=== PATIENT | female | born 1955 | race Caucasian/White ===

== ENCOUNTER 2023-03-08 06:22 | Emergency (ER) | payer BC ==
[2023-03-08] MEDS ORDERED: hydrALAZINE 20 MG/ML VIAL ONE (07:22)
[2023-03-08 07:23] LABS: #Basophils 0.1 thou/uL (0.0-0.2); #Eosinphils 0.3 thou/uL (0.0-0.7); #Monocytes 0.7 thou/uL (0.11-0.59); #Neutrophils 4.2 thou/uL (1.40-6.50); %Basophils 0.6 % (0.0-1.0); %Eosinophils 3.4 % (0.0-10.0); %Lymphocytes 47.1 % (21.0-51.0); %Monocytes 7.2 % (0.0-10.0); %Neutrophils 41.2 % (42.0-75.0); Hematocrit 46.6 % (36.0-47.0); Hemoglobin 16.2 g/dL (12.0-16.0); Mean Corpuscular HGB CONC 34.8 g/dL (32.0-36.0); Mean Corpuscular Hemoglobin 32.4 pg (27.0-31.0); Mean Corpuscular Volume 93.2 fl (78.0-98.0); Mean Platelet Volume 11.5 fL (7.4-10.4); Platelet Count 243 10x3/uL (130-400); RBC Distribution Width 11.9 % (11.5-14.5); White Blood Cell (WBC) Count 10.1 10x3/uL (4.8-10.8)
[2023-03-08 07:50] LABS: ALT (SGPT) 30 U/L (8-55); AST (SGOT) 25 U/L (5-34); Albumin 4.2 g/dL (3.4-4.8); Alkaline Phosphatase 65 U/L (40-110); Anion Gap 11 mmol/L (10-20); BUN (Urea Nitrogen) 14 mg/dL (9.8-20.1); Bilirubin, Total 0.6 mg/dL (0.2-1.2); Calc. Creatinine Clearance 0 mL/min (70-130); Calcium 9.5 mg/dL (7.8-10.44); Carbon Dioxide 28 mmol/L (23-31); Chloride 100 mmol/L (98-107); Estimated GFR 72; Globulin 3.5 g/dL (2.4-3.5); Glucose 229 mg/dL (80-115); Potassium 3.9 mmol/L (3.5-5.1); Protein, Total 7.7 g/dL (5.8-8.1); Sodium 135 mmol/L (136-145)
[2023-03-08 07:52] LABS: Troponin I 0.016 ng/mL (< 0.028)
== END 2023-03-08 08:59 | disposition short-term general hospital (02) ==
LOC: ERS 06:22
DX: I10 Essential (primary) hypertension (principal); E11.9 Type 2 diabetes mellitus without complications; Z79.82 Long term (current) use of aspirin
CPT/HCPCS: 70450; 80053; 84484; 85025; 93005; 96374; J0360

== ENCOUNTER 2023-03-12 17:56 | Inpatient (IN) | payer BC ==
[2023-03-12 18:14] LABS: #Basophils 0.1 thou/uL (0.0-0.2); #Eosinphils 0.2 thou/uL (0.0-0.7); #Monocytes 0.8 thou/uL (0.11-0.59); #Neutrophils 5.6 thou/uL (1.40-6.50); %Basophils 0.8 % (0.0-1.0); %Eosinophils 2.2 % (0.0-10.0); %Lymphocytes 36.8 % (21.0-51.0); %Monocytes 7.8 % (0.0-10.0); %Neutrophils 52.3 % (42.0-75.0); Hematocrit 48.4 % (36.0-47.0); Hemoglobin 16.8 g/dL (12.0-16.0); Mean Corpuscular HGB CONC 34.7 g/dL (32.0-36.0); Mean Corpuscular Hemoglobin 32.7 pg (27.0-31.0); Mean Corpuscular Volume 94.3 fl (78.0-98.0); Mean Platelet Volume 10.7 fL (7.4-10.4); Platelet Count 271 10x3/uL (130-400); RBC Distribution Width 11.9 % (11.5-14.5); Red Blood Cell (RBC) Count 5.13 mill/uL (4.20-5.40); White Blood Cell (WBC) Count 10.6 10x3/uL (4.8-10.8)
[2023-03-12 18:26] LABS: INR-International Normal Ratio 1.1; Prothrombin Time 14.4 sec (12.0-14.7)
[2023-03-12 18:27] LABS: PTT 24.1 sec (22.9-36.1)
[2023-03-12 18:40] LABS: Troponin I 0.011 ng/mL (< 0.028)
[2023-03-12 18:46] LABS: ALT (SGPT) 30 U/L (8-55); AST (SGOT) 31 U/L (5-34); Albumin 4.4 g/dL (3.4-4.8); Alkaline Phosphatase 64 U/L (40-110); Anion Gap 15 mmol/L (10-20); BUN (Urea Nitrogen) 14 mg/dL (9.8-20.1); Bilirubin, Total 0.9 mg/dL (0.2-1.2); Calc. Creatinine Clearance 0 mL/min (70-130); Calcium 9.9 mg/dL (7.8-10.44); Carbon Dioxide 25 mmol/L (23-31); Chloride 102 mmol/L (98-107); Estimated GFR 58; Globulin 3.6 g/dL (2.4-3.5); Glucose 194 mg/dL (80-115); Sodium 138 mmol/L (136-145)
[2023-03-12] MEDS ORDERED: hydrALAZINE 20 MG/ML VIAL SLOW IVP PRN (19:15)
[2023-03-12] MEDS ORDERED: Acetaminophen 325 MG TAB PO PRN (19:18)
[2023-03-12] MEDS ORDERED: Calcium Carbonate 500 MG ChewTAB PO PRN (19:18)
[2023-03-12] MEDS ORDERED: Senokot S 8.6-50 MG TAB PO PRN (19:18)
[2023-03-12] MEDS ORDERED: Ondansetron ODT 4 MG TAB PO PRN (19:18)
[2023-03-12] MEDS ORDERED: Aspirin Chewable 81 MG TAB ONE (19:57)
[2023-03-12 21:36] VITALS: BMI 37.8
[2023-03-12] MEDS ORDERED: Atorvastatin Calcium 40 MG TAB ONE (21:39)
[2023-03-12] MEDS ORDERED: Famotidine 20 MG TAB ONE (21:39)
[2023-03-12 21:48] LABS: Hemoglobin A1c 11.1 % (4.0-6.0)
[2023-03-12] MEDS: Famotidine 20 MG TAB PO SCH (21:49)
[2023-03-12] MEDS: Atorvastatin Calcium 40 MG TAB PO SCH (21:49)
[2023-03-13 05:07] LABS: Anion Gap 14 mmol/L (10-20); BUN (Urea Nitrogen) 18 mg/dL (9.8-20.1); Calc. Creatinine Clearance 89 mL/min (70-130); Calcium 9.3 mg/dL (7.8-10.44); Carbon Dioxide 22 mmol/L (23-31); Cardiac Risk 6.4 (Less than 4.5); Chloride 105 mmol/L (98-107); Cholesterol 205 mg/dl (< 200 Desired); Estimated GFR 64; Glucose 229 mg/dL (80-115); HDL Cholesterol 32 mg/dL (>60 Neg Risk); LDL Cholesterol, Calculated 133 mg/dL; Potassium 3.9 mmol/L (3.5-5.1); Sodium 137 mmol/L (136-145); Triglycerides 198 mg/dL (Less than 150)
[2023-03-13 05:40] LABS: #Basophils 0.1 thou/uL (0.0-0.2); #Eosinphils 0.3 thou/uL (0.0-0.7); #Monocytes 0.8 thou/uL (0.11-0.59); #Neutrophils 4.1 thou/uL (1.40-6.50); %Basophils 0.7 % (0.0-1.0); %Eosinophils 2.9 % (0.0-10.0); %Lymphocytes 46.5 % (21.0-51.0); %Monocytes 8.5 % (0.0-10.0); %Neutrophils 41.2 % (42.0-75.0); Hemoglobin 15.1 g/dL (12.0-16.0); Mean Corpuscular HGB CONC 34.3 g/dL (32.0-36.0); Mean Corpuscular Hemoglobin 32.6 pg (27.0-31.0); Mean Platelet Volume 11.7 fL (7.4-10.4); Platelet Count 249 10x3/uL (130-400); RBC Distribution Width 12.3 % (11.5-14.5); Red Blood Cell (RBC) Count 4.63 mill/uL (4.20-5.40); White Blood Cell (WBC) Count 9.9 10x3/uL (4.8-10.8)
[2023-03-13] MEDS ORDERED: Aspirin Chewable 81 MG TAB ONE (09:53)
[2023-03-13] MEDS ORDERED: Famotidine 20 MG TAB ONE (09:54)
[2023-03-13] MEDS: Famotidine 20 MG TAB PO SCH ×2 (10:04→21:26)
[2023-03-13] MEDS: Aspirin 81 mg Enteric Coated Tablet PO SCH (10:04)
[2023-03-13] MEDS ORDERED: glipiZIDE 5 MG TAB PO SCH (12:30)
[2023-03-13] MEDS ORDERED: metFORMIN 500 MG TAB PO SCH (12:30)
[2023-03-13] MEDS ORDERED: metFORMIN XR 500 MG ER.TAB PO SCH (12:30)
[2023-03-13] MEDS ORDERED: FLU VACC QS2023(65UP)/MF59C/PF 60 MCG/0.5 ML SYRINGE IM ONE (14:00)
[2023-03-13] MEDS: Atorvastatin Calcium 40 MG TAB PO SCH (21:26)
[2023-03-14] MEDS ORDERED: glipiZIDE 5 MG TAB PO SCH (07:30)
[2023-03-14] MEDS ORDERED: metFORMIN XR 500 MG ER.TAB PO SCH (08:00)
[2023-03-14] MEDS: Famotidine 20 MG TAB PO SCH (09:49)
[2023-03-14] MEDS: Aspirin 81 mg Enteric Coated Tablet PO SCH (09:50)
[2023-03-14 15:45] VITALS: BP 165/76; TEMP 97.5
[2023-03-15] MEDS ORDERED: Clopidogrel Bisulfate 75 MG TAB PO SCH (09:00)
== END 2023-03-14 18:48 | disposition home or self-care (01) | DRG 66 ==
LOC: ERS 17:56 → ERHOLD 19:37 → 2SE 19:42 → OBSVTOIN 03-13 15:23
PROVIDERS: ADMIT Student in an Organized Health Care Education/Training Program; ATTEND Emergency Medicine
DX: I63.9 Cerebral infarction, unspecified (principal); R47.01 Aphasia; I10 Essential (primary) hypertension; E11.9 Type 2 diabetes mellitus without complications; R47.1 Dysarthria and anarthria; E78.2 Mixed hyperlipidemia; Z79.84 Long term (current) use of oral hypoglycemic drugs; Z79.82 Long term (current) use of aspirin; Z79.899 Other long term (current) drug therapy
CPT/HCPCS: 36416; 70450; 70551; 71045; 80048; 80053; 80061; 83036; 84484; 85025; 85610; 85730; 93005; 93306; 93880; 94760

== ENCOUNTER 2023-05-17 10:59 | Outpatient (CLI) | payer MEDICARE, BC | END 2023-05-17 11:00 | disposition home or self-care (01) | LOC: ULT 10:59 | PROVIDERS: ATTEND Nurse Practitioner Family | DX: E04.2 Nontoxic multinodular goiter (principal) | CPT/HCPCS: 76536 ==

== ENCOUNTER 2023-06-29 12:27 | Outpatient (CLI) | payer MEDICARE, BC | END 2023-06-29 12:28 | disposition home or self-care (01) | LOC: BICMAMMO 12:27 | PROVIDERS: ATTEND Nurse Practitioner Family | DX: Z12.31 Encounter for screening mammogram for malignant neoplasm of breast (principal); Z13.820 Encounter for screening for osteoporosis; Z78.0 Asymptomatic menopausal state; Z80.3 Family history of malignant neoplasm of breast | CPT/HCPCS: 77063; 77067; 77080 ==